=== PATIENT | male | born 1955 | race Caucasian/White ===

== ENCOUNTER 2021-01-11 11:13 | Inpatient (IN) | payer MEDICAID ==
[~2021-01-11] VITALS: Ht 190.5 cm; Wt 87.6 kg
[2021-01-11] MEDS ORDERED: SODIUM CHLORIDE FLUSH 10ML SYR IVF ONE (12:00)
[2021-01-11] MEDS ORDERED: SODIUM CHLORIDE FLUSH 10ML SYR IVF PRN (12:30)
[2021-01-11] MEDS ORDERED: LIDOCAINE-MPF 1%, 5ML ONE (12:38)
[2021-01-11 12:59] LABS: HCT (SEDRATE) 50.5 % (39.2-51.8)
[2021-01-11 13:00] LABS: BASOPHILS % (AUTO) 1 % (0-1); EOSINOPHILS % (AUTO) 2 % (1-7); LYMPHOCYTES % (AUTO) 10 % (22-44); MEAN CORPUSCULAR HEMOGLOBIN 32.2 pg (27.5-34.5); MEAN CORPUSCULAR HGB CONC 34.3 g/dL (33.2-36.2); MEAN PLATELET VOLUME 8.3 fL (7.4-10.4); MONOCYTES % (AUTO) 10 % (2-9); NEUTROPHILS % (AUTO) 77 % (42-75); PLATELET COUNT 206 x10^3/uL (130-400); RED BLOOD COUNT 5.29 x10^6/uL (4.38-5.82); RED CELL DISTRIBUTION WIDTH 13.2 % (9.4-14.8)
[2021-01-11 13:02] LABS: MD NO
[2021-01-11 13:10] LABS: ALBUMIN 3.9 g/dL (3.4-5.0); ANION GAP 8 mmol/L (5-15); CALCIUM 8.6 mg/dL (8.5-10.1); CHLORIDE 109 mmol/L (98-107)
[2021-01-11 13:15] LABS: INTERNATIONAL NORMALIZED RATIO 1.02 (0.93-1.1); PROTHROMBIN TIME 10.9 Seconds (9.6-11.5)
--- NOTE | 2021-01-11 13:16 | NUR ---
PT SITTING UPRIGHT IN RHINES WITH NO SIGNS OR SYMPTOMS OF ACUTE DISTRESS NOTED RESPIRATIONS EVEN AND UNLABORED DENIES PAIN OR DISCOMFORT A THIS TIME. REPORT CALLED TO DIDI BOSWELL FOR ROOM [id number], PT READY FOR TRANSPORT.
[2021-01-11 13:35] VITALS: BP 108/73
[2021-01-11 13:38] LABS: ALANINE AMINOTRANSFERASE 31 U/L (12-78); ALKALINE PHOSPHATASE 85 U/L (45-117); BILIRUBIN,TOTAL 0.8 mg/dL (0.2-1.0); C-REACTIVE PROTEIN, QUANT 0.48 mg/dL (0.02-0.49); CREATININE 0.92 mg/dL (0.7-1.3); TOTAL PROTEIN 7.6 g/dL (6.4-8.2)
[2021-01-11] MEDS ORDERED: ONDANSETRON 2MG/ML, 2ML IVPush PRN (14:00)
[2021-01-11] MEDS ORDERED: hydrALAzine 20 MG/ML, 1ML IVPush PRN (14:00)
[2021-01-11] MEDS ORDERED: LORazepam 2 MG/ML, 1ML IVPush PRN (14:00)
[2021-01-11] MEDS ORDERED: GADOTERATE 10 MMOL/20 ML VIAL ONE (14:19)
[2021-01-11] MEDS ORDERED: OMNIPAQUE 350 MG/ML, 75ML BOTTLE ONE (15:12)
[2021-01-11 16:49] VITALS: BP 123/82
[2021-01-11 17:23] LABS: GLUCOSE, CSF 46 mg/dL (40-80); TOTAL PROTEIN,CSF 61 mg/dL (15-45)
[2021-01-11 17:37] LABS: HCT (SEDRATE) 49.9 % (39.2-51.8)
[2021-01-11 17:49] LABS: C-REACTIVE PROTEIN, QUANT 0.5 mg/dL (0.02-0.49)
[2021-01-11 19:09] VITALS: BP 96/63
[2021-01-12] VITALS: BP 130/84
[2021-01-12] MEDS: GUAIFENESIN/DM 200-20MG, 10ML UDC PO PRN ×2 (04:54→19:39)
[2021-01-12] MEDS: ACETAMINOPHEN 325 MG TABLET PO PRN ×2 (04:54→19:39)
[2021-01-12 05:09] LABS: ANION GAP 5 mmol/L (5-15); CALCIUM 8.6 mg/dL (8.5-10.1); CHLORIDE 111 mmol/L (98-107); CREATININE 1.03 mg/dL (0.7-1.3)
[2021-01-12 07:05] VITALS: BP 104/70
[2021-01-12] MEDS: ALBUTEROL HFA 90 MCG/SPRAY INH SCH ×2 (12:05→19:35)
[2021-01-12 13:36] VITALS: BP 97/57
[2021-01-12 19:33] VITALS: BP 101/69
[2021-01-12] MEDS: MELATONIN 5 MG TABLET PO PRN (19:39)
[2021-01-13 01:02] VITALS: BP 100/67
[2021-01-13 06:22] LABS: BASOPHILS % (AUTO) 1 % (0-1); EOSINOPHILS % (AUTO) 2 % (1-7); LYMPHOCYTES % (AUTO) 11 % (22-44); MEAN CORPUSCULAR HEMOGLOBIN 32.3 pg (27.5-34.5); MEAN CORPUSCULAR HGB CONC 34.3 g/dL (33.2-36.2); MEAN PLATELET VOLUME 7.6 fL (7.4-10.4); MONOCYTES % (AUTO) 11 % (2-9); NEUTROPHILS % (AUTO) 76 % (42-75); PLATELET COUNT 194 x10^3/uL (130-400); RED BLOOD COUNT 5.02 x10^6/uL (4.38-5.82)
[2021-01-13 06:23] LABS: MD NO
[2021-01-13 06:33] LABS: ALANINE AMINOTRANSFERASE 28 U/L (12-78); ALBUMIN 3.5 g/dL (3.4-5.0); ANION GAP 6 mmol/L (5-15); CALCIUM 8.4 mg/dL (8.5-10.1); CHLORIDE 110 mmol/L (98-107); CREATININE 0.93 mg/dL (0.7-1.3)
[2021-01-13 06:36] LABS: ALKALINE PHOSPHATASE 79 U/L (45-117); BILIRUBIN,TOTAL 0.7 mg/dL (0.2-1.0)
[2021-01-13 07:00] VITALS: BP 104/65
[2021-01-13] MEDS: ENOXAPARIN 40 MG/0.4 ML SQ SCH ×2 (08:30→12:18)
[2021-01-13] MEDS: ALBUTEROL HFA 90 MCG/SPRAY INH SCH ×2 (08:55→19:06)
[2021-01-13] MEDS ORDERED: LORazepam 2 MG/ML, 1ML IVPush ONE (10:00)
[2021-01-13] MEDS ORDERED: LIDOCAINE 1%, 10ML ONE (11:02)
[2021-01-13 13:44] VITALS: BP 103/65
[2021-01-13 19:21] VITALS: BP 122/75
[2021-01-13] MEDS: MELATONIN 5 MG TABLET PO PRN (19:44)
[2021-01-13] MEDS: GUAIFENESIN/DM 200-20MG, 10ML UDC PO PRN (19:44)
[2021-01-13] MEDS: ACETAMINOPHEN 325 MG TABLET PO PRN (19:45)
[2021-01-14 04:49] VITALS: BP 117/74
[2021-01-14 07:04] VITALS: BP 105/73
[2021-01-14] MEDS: ALBUTEROL HFA 90 MCG/SPRAY INH SCH ×2 (07:10→18:39)
[2021-01-14] MEDS: LORazepam 0.5MG TABLET PO PRN (08:34)
[2021-01-14 12:02] VITALS: BP 114/73
[2021-01-14] MEDS: ENOXAPARIN 40 MG/0.4 ML SQ SCH (12:19)
[2021-01-14 18:51] VITALS: BP 106/69
[2021-01-14] MEDS: MELATONIN 5 MG TABLET PO PRN (20:09)
[2021-01-14] MEDS: GUAIFENESIN/DM 200-20MG, 10ML UDC PO PRN (20:13)
[2021-01-15 02:08] VITALS: BP 108/69
[2021-01-15] MEDS: ACETAMINOPHEN 325 MG TABLET PO PRN (02:15)
[2021-01-15] MEDS: LORazepam 0.5MG TABLET PO PRN (02:19)
[2021-01-15 06:51] VITALS: BP 109/71
== END 2021-01-15 08:35 | disposition home or self-care (01) | DRG 952 ==
LOC: SUATTDRO 12:22 → ED 12:37 → EDIP 12:53 → 4NW 13:28
PROVIDERS: ADMIT Family Medicine; ATTEND Internal Medicine
PROC: 009U3ZX Drainage of Spinal Canal, Percutaneous Approach, Diagnostic (ICD-10-PCS; principal; 2021-01-11)
PROC: B01B1ZZ Fluoroscopy of Spinal Cord using Low Osmolar Contrast (ICD-10-PCS; 2021-01-11)
PROC: 07B63ZX Excision of Left Axillary Lymphatic, Percutaneous Approach, Diagnostic (ICD-10-PCS; 2021-01-13)
DX: H46.9 Unspecified optic neuritis (principal); D86.9 Sarcoidosis, unspecified; F12.90 Cannabis use, unspecified, uncomplicated; H35.81 Retinal edema; F17.210 Nicotine dependence, cigarettes, uncomplicated; G47.00 Insomnia, unspecified; R42 Dizziness and giddiness; I10 Essential (primary) hypertension; J43.9 Emphysema, unspecified; H54.3 Unqualified visual loss, both eyes; Z83.3 Family history of diabetes mellitus; Z82.49 Family history of ischemic heart disease and other diseases of the circulatory system
CPT/HCPCS: 36415; 38505; 62328; 70543; 70553; 71260; 77012; 80048; 80053; 81373; 81374; 82040; 82042; 82164; 82310; 82607; 82784; 82945; 82977; 83036; 83520; 83735; 83873; 84100; 84157; 84443; 85025; 85549; 85610; 85651; 85730; 86140; 86147; 86225; 86235; 86256; 86480; 86592; 86611; 86617; 86618; 86645; 86694; 86695; 86696; 86762; 86777; 86778; 86787; 87070; 87102; 87116; 87205; 87206; 87899; 88305; 89051; 94640; 99285; G0378; J1650; J2930; Q9967; A9575; J2060

== ENCOUNTER 2021-02-01 06:03 | Day surgery (SDC) | payer MEDICAID ==
[~2021-02-01] VITALS: Ht 190.5 cm; Wt 91.0 kg
[2021-02-01] MEDS ORDERED: EPINEPHRINE 1 MG/ML, 1ML ONE (06:32)
[2021-02-01] MEDS ORDERED: BUPIVACAINE/PF 0.5% ONE (06:32)
[2021-02-01 06:34] VITALS: BP 133/83
[2021-02-01] MEDS ORDERED: MIDAZOLAM 1 MG/ML, 2ML ONE (06:49)
[2021-02-01] MEDS ORDERED: FENTANYL PF 100 MCG/2ML ONE (06:50)
[2021-02-01] MEDS ORDERED: MEPERIDINE/PF 25MG/0.5ML IVPush PRN (07:00)
[2021-02-01] MEDS ORDERED: CHLORHEXIDINE 15 ML UDC MM ONE (07:00)
[2021-02-01] MEDS ORDERED: LACTATED RINGERS 1,000 ML IV SCH (07:00)
[2021-02-01] MEDS ORDERED: OXYcodone 5 MG/5 ML ORAL.SOL UDC PO PRN (07:00)
[2021-02-01] MEDS ORDERED: HYDROcodone/APAP 7.5-325MG/15ML UDC PO PRN (07:00)
[2021-02-01] MEDS ORDERED: ONDANSETRON 2MG/ML, 2ML IVPush PRN ×2 (07:00→08:30)
[2021-02-01] MEDS ORDERED: PROMETHAZINE 25 MG/ML, 1ML IVPush PRN (07:00)
[2021-02-01] MEDS ORDERED: HYDROmorphone 1 MG/ML, 1ML INJ IVPush PRN (07:00)
[2021-02-01] MEDS ORDERED: FENTANYL PF 100 MCG/2ML IV PRN (07:00)
[2021-02-01] MEDS ORDERED: PRED5TAB PO (07:20)
[2021-02-01] MEDS ORDERED: DORZ10DR7 EACHEYE (07:20)
[2021-02-01] MEDS ORDERED: ALPR0.5T PO (07:20)
[2021-02-01] MEDS ORDERED: FAMC500T4 PO (07:20)
[2021-02-01] MEDS ORDERED: EPHEDRINE 50 MG/ML, 1ML ONE (07:30)
[2021-02-01] MEDS ORDERED: PROPOFOL 10 MG/ML, 20ML ONE (07:30)
[2021-02-01] MEDS ORDERED: CEFAZOLIN 1,000 MG ONE (07:30)
[2021-02-01] MEDS ORDERED: ONDANSETRON 2MG/ML, 2ML ONE (07:30)
[2021-02-01] MEDS ORDERED: DEXAMETHASONE 4 MG/ML, 5ML ONE (07:30)
[2021-02-01] MEDS ORDERED: HYDROcodone/APAP 5/325 TABLET PO PRN (08:30)
[2021-02-01] MEDS ORDERED: ALBUTEROL HFA 90 MCG/SPRAY ONE (08:55)
== END 2021-02-01 10:10 | disposition home or self-care (01) ==
LOC: OUT 06:03
PROVIDERS: ATTEND Thoracic Surgery (Cardiothoracic Vascular Surgery)
DX: R59.1 Generalized enlarged lymph nodes (principal); J44.9 Chronic obstructive pulmonary disease, unspecified; M19.90 Unspecified osteoarthritis, unspecified site; Z20.822 Contact with and (suspected) exposure to COVID-19; Z79.899 Other long term (current) drug therapy; Z87.891 Personal history of nicotine dependence; Z98.890 Other specified postprocedural states; Z80.0 Family history of malignant neoplasm of digestive organs; Z83.3 Family history of diabetes mellitus; Z80.6 Family history of leukemia
CPT/HCPCS: 38525; 88305; 93005; J0171; J0690; J1100; J2250; J2405; J2704; J3010; U0003